=== PATIENT | female | born 1960 | race Caucasian/White ===

== ENCOUNTER → 2021-03-14 10:59 | Outpatient (CLI) | payer OTHER, SELFPAY ==
--- NOTE | 2021-03-14 11:01 | DI.MRI.S_ITS ---
PROCEDURE: MR LUMBAR SPINE WO CON INDICATIONS: lumbar radiculopathy TECHNIQUE: Noncontrast sagittal T1 spin echo and T2 fast echo, sagittal STIR, axial T1 and T2 fast spin echo through the lumbar spine. In cases with scoliosis, additional coronal T2 fast spin echo may be performed. COMPARISON: [facility], , MRI L-SPINE W/O CONTRAST, 04/25/2017, 14:00. [facility], , SPINE LUMB 2 OR 3VW, 09/19/2015, 9:19. FINDINGS: Image quality: Excellent. Alignment and Curvature: There is normal bony alignment. Bone Marrow: Marrow is of normal overall signal. No acute vertebral body compression fractures. Spinal Cord: Conus medullaris terminates at the L1 level. Visualized cord demonstrates normal signal and size. Paraspinous Soft Tissues: No paravertebral masses. T12-L1: Normal appearance. L1-L2: Normal appearance. L2-L3: Slight loss of disc signal. Minimal, diffuse disc bulge. Mild bilateral facet hypertrophy. Mild narrowing of the central canal. No neural foraminal narrowing. No neural compression. Fissure noted in the anterior annulus. L3-L4: Slight loss of disc signal. Mild, diffuse disc bulge. Mild bilateral facet hypertrophy. Moderate narrowing of the central canal. Mild to moderate bilateral neural foraminal narrowing. No neural compression. Fissure noted in the left lateral annulus. L4-L5: Loss of disc signal. Mild, diffuse disc bulge. Mild bilateral facet hypertrophy. Mild narrowing of the central canal. Moderate bilateral neural foraminal narrowing. No neural compression. L5-S1: Disc has a normal appearance. Mild bilateral facet hypertrophy. No central stenosis. No neural foraminal narrowing. No neural compression IMPRESSION: 1. Mild multilevel degenerative disc disease. 2. Mild multilevel facet arthropathy. 3. No severe central canal narrowing. 4. No severe neural foraminal narrowing. 5. No neural compression. 6. L2-L3 and L3-L4 disc annulus fissures. Dictated by: Jeannette Gamez MD, PhD on 03/16/2021 at 11:56 Approved by: Jeannette Gamez MD, PhD on 03/16/2021 at 12:00
== END ==
PROVIDERS: PCP Family Medicine; Referring Provider Physical Medicine & Rehabilitation; Visit Provider Physical Medicine & Rehabilitation
DX: M51.16 Intervertebral disc disorders with radiculopathy, lumbar region (principal); M47.26 Other spondylosis with radiculopathy, lumbar region; M47.27 Other spondylosis with radiculopathy, lumbosacral region
CPT/HCPCS: 72148

== ENCOUNTER → 2021-04-27 08:05 | Outpatient (CLI) | payer OTHER, SELFPAY ==
[2021-04-27 11:48] LABS: COVID19 -Nasal RAPID Negative (Negative)
== END ==
PROVIDERS: Nurse Practitioner; PCP Family Medicine; Visit Provider Physical Medicine & Rehabilitation
DX: Z20.822 Contact with and (suspected) exposure to COVID-19 (principal)
CPT/HCPCS: 87635

== ENCOUNTER 2021-04-28 09:59 | Outpatient (CLI) | payer OTHER, SELFPAY ==
[2021-04-28] VITALS (8 sets, daily range): BP systolic 120–154; BP diastolic 61–79; PULSE 91–97; RESP 15–25; TEMP 36.6; O2SAT 96–98
--- NOTE | 2021-04-28 10:01 | DI.RAD.S_ITS ---
PROCEDURE: PAIN L/S FACET INJ/BLK 1ST JUAN COMPARISON: [facility], MR, MR LUMBAR SPINE WO CON, 03/14/2021, 11:18. [facility], RG, XR L-SPINE 2-3V, 12/01/2020, 18:43. INDICATIONS: SPONDYLOSIS FINDINGS: Fluoroscopic spot filming was performed to verify placement of a spinal needle at the L3-L4 level and the L4-L5 level, as labeled on the films. Appropriate location of the needle tip was confirmed by injection of iodinated contrast. IMPRESSION: Intraprocedural examination within normal limits. Dictated by: Naman Gaona M.D. on 04/28/2021 at 11:12 Approved by: Naman Gaona M.D. on 04/28/2021 at 11:12
[2021-04-28] MEDS: fentaNYL 100 MCG/2 ML INJ 50 MCG IV (10:55)
[2021-04-28] MEDS: MIDAZOLAM 5 MG/5 ML VIAL IV (10:57)
[2021-04-28] MEDS: IOPAMIDOL 15 ML VIAL 3 ML INJ (11:06)
[2021-04-28] MEDS: BUPIVACAINE 0.5% (PF) VIAL 2 ML INJ (11:06)
[2021-04-28] MEDS: BETAMETHASONE 30 MG/5 ML MDV 12 MG INJ (11:07)
[2021-04-28] MEDS: LIDOCAINE 1% 20 ML 10 ML INJ (11:07)
--- NOTE | 2021-04-28 11:14 | P.PCN_ITS ---
Date/Time/Diagnoses Date of procedure: 04/28/21 Time of procedure: 11:14 Pre-procedure diagnosis: 1. FACET ARTHROPATHY 2. AXIAL LBP 3. MULTILEVEL DDD Post-procedure diagnosis: same Procedure Notes Procedure: 1. FLUORSCOPICALLY GUIDED CONTRAST CONTROLLED FACET JOINT INJECTIONS BILATERAL L3/4, L4/5 Indications: Britt is referred by Dr. Torres for treatment of Axial LBP Physician: Vic Shukla Total Fluoroscopy time (seconds): 12 Total sedation minutes: 14 Complications: none Procedure in detail & Post-procedure care: FINDINGS Multilevel Facet Arthropathy with Clinically significant axial LBP DESCRIPTION OF PROCEDURE Fluoroscopically guided, contrast-controlled bilateral L3/4, L4/5 facet joint injections. Following review of allergy and review of potential side effects and complications, including, but not necessarily limited to, infection, allergic reaction, local tissue breakdown, stroke, temporary or permanent nerve injury, paralysis, and possible , the patient indicated that the patient understood and agreed to proceed. An informed consent document was signed by the patient, witnessed by a nurse, and placed in the patient's chart. Additionally, other treatment options including medications, modalities, and physical therapy were reviewed with the patient. After review of previous anaesthesic history and IV conscious sedation the patient was deemed safe to proceed with today's procedure with IV conscious sedation as ASA class II designation. Safety time-out was performed to confirm patient ID, procedure to be performed and site of procedure. IV sedation was accomplished with a combination of 4mg of Versed and 50mcg of Fentanyl was administered by the RN after DO order, titrated to patient comfort during the course of the procedure while the patient remained responsive to all verbal commands. In the prone position, following sterile prep and drape of the lumbar region, the posterior aspect of the L3/4, L4/5 facet joints were identified fluoroscopically. The skin was anesthetized via a 25-gauge 1.5-inch needle with 1% lidocaine solution into the corresponding facet joints. At this point, a 22- gauge 3.5-inch spinal needle was atraumatically introduced and advanced under fluoroscopic guidance into the corresponding facet joints. Following negative aspiration, injections of approximately 0.2cc of Isovue 200 confirmed interar ticular placement without vascular uptake. The identical procedure was then performed at the L3/4, L4/5 facet joints on the left. Radiological data, including multiple fluoroscopic views of the lumbosacral spine, reveal a spinal needle at the L3/4, L4/5 facet joints bilaterally. Subsequent views show flow of contrast material both superiorly and inferiorly within the joint space without vascular or intrathecal uptake. At this point, a total of 0.5cc including a mixture of 0.25cc Marcaine and 0.25cc betamethasone was injected without complication into each of the corresponding facet joints. The patient tolerated the procedure well without signs or symptoms of complications prior to transfer to the recovery area continued monitoring without incident. The patient was then transferred to the recovery area where they were observed for an appropriate period of time after the injection. The patient reported a VAS score of 7 prior to the procedure and a post-procedure VAS of 0. POST OP INSTRUCTIONS The patient was provided a Pain Log to continue to record their response to the target-specific procedure prior to follow-up visit with their referring physician. Additionally, specific post-injection care instructions and a contact number to our office were provided if concerns arise regarding possible complications associated with the procedure are suspected.
== END 2021-04-28 11:33 | disposition home or self-care (01) ==
LOC: RAD 10:01
PROVIDERS: PCP Family Medicine; Referring Provider Physical Medicine & Rehabilitation; Visit Provider Physical Medicine & Rehabilitation
DX: M47.816 Spondylosis without myelopathy or radiculopathy, lumbar region (principal); M51.36 Other intervertebral disc degeneration, lumbar region; M54.5 Low back pain
CPT/HCPCS: 64493; 64494; 99152; J0702; J2250; J3010

== ENCOUNTER → 2022-02-02 12:54 | Outpatient (CLI) | payer OTHER, SELFPAY ==
[2022-02-02 15:13] LABS: COVID19 -Nasal RAPID Negative (Negative)
== END ==
PROVIDERS: PCP Family Medicine; Visit Provider Physical Medicine & Rehabilitation
DX: Z20.822 Contact with and (suspected) exposure to COVID-19 (principal)
CPT/HCPCS: 87635; C9803

== ENCOUNTER 2022-02-04 10:22 | Outpatient (CLI) | payer OTHER, SELFPAY ==
[2022-02-04] VITALS (10 sets, daily range): BP systolic 122–169; BP diastolic 59–74; PULSE 81–96; RESP 16–21; TEMP 36.4; O2SAT 95–99
--- NOTE | 2022-02-04 10:24 | DI.RAD.S_ITS ---
PROCEDURE: PAIN L/S FACET INJ/BLK 1ST JUAN COMPARISON: None. INDICATIONS: SPONDYLOSIS FINDINGS: Access needles noted at the bilateral L3, L4 and L5 pedicles. Injection of small amount of contrast material through the axis needles demonstrates the tips of the access needles are extra thecal. IMPRESSION: Access needles at the bilateral L3, L4 and L5 pedicles for bilateral L3, L4 and L5 medial branch block. Dictated by: Jeannette Gamez MD, PhD on 02/04/2022 at 11:40 Approved by: Jeannette Gamez MD, PhD on 02/04/2022 at 11:41
[2022-02-04] MEDS: BUPIVACAINE 0.5% (PF) VIAL 5 ML INJ (11:10)
[2022-02-04] MEDS: IOPAMIDOL 15 ML VIAL 3 ML INJ (11:10)
[2022-02-04] MEDS: LIDOCAINE 1% 20 ML (11:10)
[2022-02-04] MEDS: MIDAZOLAM 5 MG/5 ML VIAL IV (11:12)
--- NOTE | 2022-02-04 11:25 | PM.PROC.IR.1 ---
Date/Time/Diagnoses Date of procedure: 02/04/22 Time of procedure: 11:26 Pre-procedure diagnosis: FACET ARTHROPATHY Post-procedure diagnosis: same Procedure Notes Procedure: 1. BILATERAL L3, L4 AND L5 DIAGNOSTIC MB BLOCKS Indications: Britt is referred by Dr. Torres for treatment of Bilateral Axial LBP. Physician: Vic Shukla Total Fluoroscopy time (seconds): 12 Total sedation minutes: 16 Complications: none Procedure in detail & Post-procedure care: DESCRIPTION OF PROCEDURE Fluoroscopically guided, contrast-controlled bilateral L3, L4 and L5 medial branch blocks with 0.5cc of 0.5% Marcaine. Following review of allergy and review of potential side effects and complications, including, but not necessarily limited to, infection, allergic reaction, local tissue breakdown, nerve injury, paralysis, stroke and possible , the patient indicated that the patient understood and agreed to proceed. An informed consent document was signed by the patient, witnessed by a nurse, and placed in the patient's chart. After review of previous anaesthesic history and IV conscious sedation the patient was deemed safe to proceed with today's procedure with IV conscious sedation as ASA class II designation. Safety time-out was performed to confirm patient ID, procedure to be performed and site of procedure. IV sedation was accomplished with a combination of 5mg of Versed was administered by the RN after DO order, titrated to patient comfort during the course of the procedure while the patient remained responsive to all verbal commands In the prone position, following sterile prep and drape of the lumbar region, the right L3, L4 and L5 anatomical location of the medial branch of the dorsal ramus was identified fluoroscopically. Subsequently an anesthetic skin wheal using 1% lidocaine solution was initiated at each of the anatomical spots. Subsequently then a 22-gauge 3.5-inch spinal needle was atraumatically introduced and advanced under fluoroscopic guidance at each of the corresponding sites at the right L3, L4 and L5 MB. After negative aspiration, 0.2cc of Isovue 200 was injected, confirming placement without vascular or intrathecal uptake. Subsequently then 0.5cc of 0.5% Marcaine solution was injected at each of the corresponding sites at the right L3, L4 and L5 medial branch locations. The identical procedure was replicated on the left. The patient tolerated the procedure well without signs or symptoms of complications. The patient tolerated the procedure well without signs or symptoms of complications prior to transfer to the recovery area continued monitoring without incident. Post-procedure, the patient was monitored initiating provocative activities to measure the amount of relief from block of the facetogenic pain. The patient reported a VAS of 7 prior to the procedure and a post-procedure VAS of 1. It has been a pleasure to assist in the diagnostic and therapeutic care of your patient. POST OP INSTRUCTIONS The patient was provided with a Pain Log to complete over the next several hours and subsequent days prior to the patient's follow up with the ordering physician. 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 The patient is aware, was provided, once again, with a Pain Log and will follow up with the referring physician for review and clinical correlation
== END 2022-02-04 11:45 | disposition home or self-care (01) ==
LOC: RAD 10:24
PROVIDERS: PCP Family Medicine; Referring Provider Physical Medicine & Rehabilitation; Visit Provider Physical Medicine & Rehabilitation
DX: M47.816 Spondylosis without myelopathy or radiculopathy, lumbar region (principal)
CPT/HCPCS: 64493; 64494; 99152; J2250

== ENCOUNTER → 2022-03-15 11:10 | Outpatient (CLI) | payer OTHER, SELFPAY ==
[2022-03-15 13:33] LABS: COVID19 -Nasal RAPID Negative (Negative)
== END ==
PROVIDERS: PCP Physician Assistant; Visit Provider Physical Medicine & Rehabilitation
DX: Z20.822 Contact with and (suspected) exposure to COVID-19 (principal)
CPT/HCPCS: 87635; C9803

== ENCOUNTER 2022-03-16 07:27 | Outpatient (CLI) | payer OTHER, SELFPAY ==
[2022-03-16] VITALS (8 sets, daily range): BP systolic 115–155; BP diastolic 57–71; PULSE 94–101; RESP 12–24; TEMP 37; O2SAT 95–98
--- NOTE | 2022-03-16 07:28 | DI.RAD.S_ITS ---
PROCEDURE: PAIN L INTERLAMINAR/CAUDAL INJ INDICATIONS: SPONDYLOSIS COMPARISON: [facility], XA, PAIN L/S FACET INJ/BLK 1ST JUAN, 02/04/2022, 11:11. FINDINGS: Fluoroscopic spot filming was performed to verify placement of a spinal needle at the L4-L5 level, as labeled on the films. Appropriate location of the needle tip was confirmed by injection of iodinated contrast. IMPRESSION: Intraprocedural examination within normal limits. Dictated by: Naman Gaona M.D. on 03/16/2022 at 9:01 Approved by: Naman Gaona M.D. on 03/16/2022 at 9:01
[2022-03-16] MEDS: BETAMETHASONE 30 MG/5 ML MDV 6 MG INJ (08:42)
[2022-03-16] MEDS: BUPIVACAINE 0.25% (PF) VIAL 2 ML INJ (08:42)
[2022-03-16] MEDS: IOPAMIDOL 15 ML VIAL 3 ML INJ (08:43)
[2022-03-16] MEDS: DEXAMETHASONE 10 MG/ML VIAL 20 MG INJ (08:43)
[2022-03-16] MEDS: MIDAZOLAM 2 MG/2 ML VIAL 4 MG IV (08:44)
--- NOTE | 2022-03-16 08:54 | P.PCN_ITS ---
Date/Time/Diagnoses Date of procedure: 03/16/22 Time of procedure: 08:54 Pre-procedure diagnosis: 1. HNP WITH RADICULAR FEATURES, 2. MULTILEVEL CENTRAL STENOSIS, Post-procedure diagnosis: same Procedure Notes Procedure: 1. FLUOROSCOPICALLY GUIDED CONTRAST CONTROLLED INTERLAMINAR EPIDURAL STEROID INJECTION -L4/5 Indications: Sujatha is referred by MARGARITA Rubio for treatment of Bilateral Foraminal Stenosis R>L LE symptoms. Physician: Vic Shukla Total Fluoroscopy time (seconds): 6 Total sedation minutes: 12 Complications: none Procedure in detail & Post-procedure care: FINDINGS Multilevel Central Spinal Stenosis with Nerve Root Compression DESCRIPTION OF PROCEDURE Fluoroscopically guided, contrast-controlled L4/5 translaminar epidural steroid injection. Following review of allergy and review of potential side effects and complications, including, but not necessarily limited to, infection, allergic reaction, local tissue breakdown, temporary as well as permanent nerve injury, paralysis, stroke and possible , the patient indicated that the patient understood and agreed to proceed. An informed consent document was signed by the patient, witnessed by a nurse, and placed in the patient's chart. Additionally, other treatment options including modalities, medications, and physical therapy were reviewed with the patient. After review of previous anaesthesic history and IV conscious sedation the patient was deemed safe to proceed with today?s procedure with IV conscious sedation as ASA class II designation. Safety time-out was performed to confirm patient ID, procedure to be performed and site of procedure. IV sedation was accomplished with a combination of 4mg of Versed was administered by the RN after DO order, titrated to patient comfort during the course of the procedure while the patient remained responsive to all verbal commands In the prone position, following sterile prep and drape of the lumbar region, the L4/5 translaminar space was identified fluoroscopically. The skin was anesthetized via a 25-gauge, 1.5inch needle with 1% lidocaine solution. At this point, a 22-gauge short bevel spinal needle was atraumatically introduced and advanced under fluoroscopic guidance into the region of the L4/5 translaminar space. Depth was confirmed on lateral view. Radiological data, including multiple fluoroscopic views of the lumbar spine, reveal a spinal needle at the L4/5 translaminar space. Lateral views then show placement of the needle in the epidural space. Subsequent views show contrast material flowing superiorly and inferiorly in the epidural space. No vascular or intrathecal uptake is observed. At this point, using loss of resistance technique with saline and air, the epidural space was entered. This was confirmed following negative aspiration with injection of approximately 1.5cc of Isovue 200, showing excellent epidural flow without vascular or intrathecal uptake. At this point, 1cc of 1% lidocaine solution combined with 3cc or 20mg of dexamethasone and 6mg betamethasone was injected without incident. The patient tolerated the procedure well without signs or symptoms of complications prior to transfer to the recovery area continued monitoring without incident. The patient was then transferred to the recovery area where they were observed for an appropriate period of time after the injection. The patient reported a VAS score of 6 prior to the procedure and a post- procedure VAS of 0. POST OP INSTRUCTIONS The patient was provided a Pain Log to continue to record their response to the target-specific procedure prior to follow-up visit with their referring physician. Additionally, specific post-injection care instructions and a contact number to our office were provided if concerns arise regarding possible complications associated with the procedure are suspected.
== END 2022-03-16 09:15 | disposition home or self-care (01) ==
LOC: RAD 07:28
PROVIDERS: PCP Physician Assistant; Referring Provider Physical Medicine & Rehabilitation; Visit Provider Physical Medicine & Rehabilitation
DX: M48.061 Spinal stenosis, lumbar region without neurogenic claudication; M51.16 Intervertebral disc disorders with radiculopathy, lumbar region
CPT/HCPCS: 62323; 99152; J0702; J1100; J2250

== ENCOUNTER → 2022-05-25 14:14 | Outpatient (CLI) | payer OTHER, SELFPAY ==
[2022-05-25 15:21] LABS: COVID19 -Nasal RAPID Negative (Negative)
== END ==
PROVIDERS: PCP Physician Assistant; Visit Provider Physical Medicine & Rehabilitation
DX: Z20.822 Contact with and (suspected) exposure to COVID-19 (principal)
CPT/HCPCS: 87635; C9803

== ENCOUNTER 2022-05-27 07:31 | Outpatient (CLI) | payer OTHER, SELFPAY ==
[2022-05-27] VITALS (20 sets, daily range): BP systolic 127–168; BP diastolic 58–94; PULSE 76–91; RESP 13–21; TEMP 36.4; O2SAT 93–99
--- NOTE | 2022-05-27 08:09 | DI.RAD.S_ITS ---
PROCEDURE: PAIN L/S MED/LAT N RFA BILAT INDICATIONS: SPONDYLOSIS COMPARISON: Loc[facility], XA, PAIN L INTERLAMINAR/CAUDAL INJ, 03/16/2022, 8:42. [facility], XA, PAIN L/S FACET INJ/BLK 1ST JUAN, 02/04/2022, 11:11. FINDINGS: Fluoroscopic spot filming was performed to verify placement of spinal needles on both sides at the L3, L4, and L5 levels, as labeled on the films. IMPRESSION: Images during rhizotomy within normal limits. Dictated by: Naman Gaona M.D. on 05/27/2022 at 11:53 Approved by: Naman Gaona M.D. on 05/27/2022 at 11:54
[2022-05-27] MEDS: BUPIVACAINE 0.5% (PF) VIAL 5 ML INJ (08:31)
[2022-05-27] MEDS: LIDOCAINE 1% (PF) 5 ML INJ (08:31)
[2022-05-27] MEDS: MIDAZOLAM 5 MG/5 ML VIAL IV (08:45)
[2022-05-27] MEDS: fentaNYL 100 MCG/2 ML INJ IV (08:45)
[2022-05-27] MEDS: ONDANSETRON 4 MG/2 ML INJ IV (08:50)
--- NOTE | 2022-05-27 09:08 | P.PCN_ITS ---
Date/Time/Diagnoses Date of procedure: 05/27/22 Time of procedure: 09:08 Pre-procedure diagnosis: 1. RECALCITRANT FACET ARTHROPATHY Post-procedure diagnosis: same Procedure Notes Procedure: 1. BILATERAL L3, L4 AND L5 MEDIAL BRANCH RADIOFREQUENCY NEUROTOMY Indications: Britt is referred by MARGARITA Rubio for treatment of facet arthropathy. Physician: Vic Shukla Total Fluoroscopy time (seconds): 24 Total sedation minutes: 39 Complications: none Procedure in detail & Post-procedure care: DESCRIPTION OF PROCEDURE Bilateral L3, L4 and L5 medial branch radiofrequency neurotomy The patient is well known to this clinic having undergone previous facet injections with good but temporary relief. The patient has experienced appropriate, concordant relief with previous facet and median branch blocks but the patient's pain has been recalcitrant to further conservative measures. Therefore, based upon the patient's relief and persistent symptoms, the patient is considered an appropriate candidate for facet rhizotomy. All of the patient's questions regarding the risks versus benefits of the procedure, including, but not limited to, bleeding, infection, temporary as well as lasting nerve injury, paralysis, stroke, and , as well treatment alternatives were answered to satisfaction. After obtaining informed consent, denial of pertinent drug allergies, as well as being made aware of the potential risks of bleeding, infection, spinal cord trauma, paralysis, temporary and permanent nerve damage, seizure, stroke, and possible , the patient was brought to the fluoroscopy suite and positioned prone on the fluoroscopy table. The lumbar region was prepped with Betadine and covered with a fenestrated drape in the usual sterile fashion. Appropriate monitors applied including pulse ox imeter, pulse, and blood pressure for regular monitoring throughout the procedure. After review of previous anaesthesic history and IV conscious sedation the patient was deemed safe to proceed with today's procedure with IV conscious sedation as ASA class II designation. Safety time-out was performed to confirm patient ID, procedure to be performed and site of procedure. IV sedation was accomplished with a combination of 5mg of Versed and 100mcg of Fentanyl administered by the RN after DO order, titrated to patient comfort during the course of the procedure while the patient remained responsive to all verbal commands. After local infiltration using 1% lidocaine, under fluoroscopic guidance, a 10- cm RF insulated needle with a 10-mm active tip was positioned parallel to the junction of the right the superior articulating process where the L5 medial branch resides. Needle placement was confirmed with motor stimulation of .5v on the right which produced local stimulation without radicular component. The stimulation was then increased to 2v with, once again, only local multifidus stimulation without radicular component. The needle was then removed and the identical procedure was performed along the length of the right L4 medial branch with motor stimulation at .7v on the right. The identical procedure was once again performed along the length of the right L3 and medial branch with motor stimulation of .5v on the right. The medial branches were then anesthetised with 0.5% marcaine. This was then followed by two discreet lesions performed at 80 degrees Celsius for 90 seconds each. The identical procedures were repeated on the left. The patient tolerated the procedure well without signs or symptoms of complications prior to transfer to the recovery area continued monitoring without incident. The patient was then transferred to the recovery area where they were observed for an appropriate period of time after the injection. The patient reported a VAS score of 9 prior to the procedure and a post-procedure VAS of 0. POST OP INSTRUCTIONS The patient was provided a Pain Log to continue to record the patient's response to the target-specific procedure prior to the patient's follow-up visit with the referring physician. Additionally, specific post-injection care instructions and a contact number to our office were provided if concerns arise regarding possible complications associated with the procedure are suspected.
--- NOTE | 2022-05-27 09:39 | PC.NURSE ---
Patient c/o nausea- is diaphoretic and feels lightheaded. cool wash cloth applied to head, alcohol swap to smell, blood glucose checked 242, taking small sips of apple juice.
--- NOTE | 2022-05-27 11:16 | PC.NURSE ---
Patient wishes to go home reports she will feel better laying in bed. Reports the nausea is about 50% gone, continues to have at times be diaphoretic. Discussed with Dr Shukla per ok to d/c home. no vomiting while in post op room.
== END 2022-05-27 10:02 | disposition home or self-care (01) ==
PROVIDERS: PCP Physician Assistant; Referring Provider Physical Medicine & Rehabilitation; Visit Provider Physical Medicine & Rehabilitation
DX: M47.816 Spondylosis without myelopathy or radiculopathy, lumbar region (principal)
CPT/HCPCS: 64635; 64636; 82962; 99152; 99153; J2250; J2405; J3010

== ENCOUNTER → 2022-07-22 12:35 | Outpatient (CLI) | payer OTHER, SELFPAY ==
[2022-07-22 13:57] LABS: COVID19 -Nasal RAPID Negative (Negative)
== END ==
PROVIDERS: PCP Physician Assistant; Referring Provider Internal Medicine; Visit Provider Internal Medicine
DX: Z20.822 Contact with and (suspected) exposure to COVID-19 (principal)
CPT/HCPCS: 87635; C9803

== ENCOUNTER → 2022-07-23 11:41 | Outpatient (CLI) | payer OTHER, SELFPAY ==
--- NOTE | 2022-07-28 09:13 | PM.PFT.1 ---
Pulmonary Function Test Referral & Results Date Patient Seen: 07/23/22 Requesting provider: Anastasiya Rodas Results: The spirometry demonstrates an FVC of 1.92 L which is 59% of predicted. The FEV1 was measured at 1.19 L which is 48% of predicted. The FEV1/FVC ratio was 62 which is 80% of predicted. Following the administration of bronchodilator there was a 33% improvement in FEF 25-75%. Lung volumes show an SVC of 2.50 L which is 83% of predicted. The diffusing capacity was measured at 17.84 which is 73% of predicted. No hemoglobin value was provided, so no correction for potential anemia could be made, if appropriate. The maximum voluntary ventilation was reduced Interpretation: This study demonstrates [id number] obstructive lung disease based on reduction FEV1 although FEV1/FVC ratio is relatively preserved. There is some evidence of benefit following bronchodilator administration based on improvement in FEF 25-75% as above. Shape a flow volume loop also supports the presence of obstructive lung disease There is a mild reduction in lung volumes suggesting the presence of mild restrictive lung disease which may explain some of the abnormality in the FEV1 above Diffusing capacity is mildly reduced suggesting disease at the capillary alveolar level as well, unless patient is anemic as above Clinical correlation suggested
== END ==
PROVIDERS: PCP Physician Assistant; Referring Provider Specialist; Visit Provider Specialist
DX: J41.0 Simple chronic bronchitis (principal); F17.211 Nicotine dependence, cigarettes, in remission; J98.8 Other specified respiratory disorders
CPT/HCPCS: 94060; 94726; 94729

== ENCOUNTER → 2022-10-18 16:54 | Outpatient (CLI) | payer OTHER, SELFPAY ==
--- NOTE | 2022-10-18 16:58 | DI.MRI.S_ITS ---
PROCEDURE: MR LUMBAR SPINE WO CON INDICATIONS: Low back pain, unspecified TECHNIQUE: Noncontrast sagittal T1 spin echo and T2 fast echo, sagittal STIR, and T2 fast spin echo through the lumbar spine. In cases with scoliosis, additional coronal T2 fast spin echo may be performed. COMPARISON: [facility], MR, MR LUMBAR SPINE WO CON, 03/14/2021, 11:18. [facility], CR, XR LUMBAR SPINE WITH FLEXION EXTENSION 5 VIEWS, 10/01/2022, 13:51. FINDINGS: Image quality: Excellent. Alignment and Curvature: There is minimal retrolisthesis seen at the L4-L5 level. Bone Marrow: Marrow is of normal overall signal. No acute vertebral body compression fractures. Spinal Cord: Conus medullaris terminates at the T12-L1 level. Visualized cord demonstrates normal signal and size. Paraspinous Soft Tissues: No paravertebral masses. A distal abdominal aortic aneurysm is seen, which measures 3.5 cm AP. T12-L1: Normal appearance. L1-L2: Normal appearance. L2-L3: No significant abnormality is seen. L3-L4: The disc height and disk signal are well-preserved. Moderate disc bulge is seen, which is eccentric to the right. There is a superimposed central disc protrusion. At least moderate facet hypertrophy is seen. There is moderate right-sided and [id number] left-sided neural foraminal narrowing. At least moderate central canal narrowing is seen at this level. When comparison is made with the prior images, these findings are similar. L4-L5: The disc height is well-preserved. Loss of disc signal is seen at this level. At least moderate disc bulge is seen. There is a central/right disc protrusion seen, as on series 6, image 5. At least moderate facet hypertrophy is seen. Associated hypertrophy of the ligamentum flavum can be seen. Moderate bilateral neural foraminal narrowing is seen. Moderate central canal narrowing is seen. There is slight progression of degenerative change since the prior, with worsening of the central/right disc protrusion. L5-S1: The disc height and disk signal are well-preserved. Mild generalized disc bulge is seen. Moderate facet joint hypertrophy is seen. There is mild left-sided and no right-sided neural foraminal narrowing. No significant central canal narrowing is seen. When comparison is made with the prior images, these findings are similar. IMPRESSION: Lower lumbar spine degenerative changes are seen, with slight progression at L4-L5 compared to 2020. Distal abdominal aortic aneurysm noted, 3.5 cm AP. Dictated by: Naman Gaona M.D. on 10/19/2022 at 12:38 Approved by: Naman Gaona M.D. on 10/19/2022 at 12:43
== END ==
PROVIDERS: PCP Physician Assistant; Referring Provider Orthopaedic Surgery Orthopaedic Surgery of the Spine; Visit Provider Orthopaedic Surgery Orthopaedic Surgery of the Spine
DX: M47.816 Spondylosis without myelopathy or radiculopathy, lumbar region (principal); M47.817 Spondylosis without myelopathy or radiculopathy, lumbosacral region; I71.40 Abdominal aortic aneurysm, without rupture, unspecified; M54.50 Low back pain, unspecified
CPT/HCPCS: 72148

== ENCOUNTER → 2023-03-02 10:00 | Outpatient (CLI) | payer OTHER, SELFPAY ==
--- NOTE | 2023-03-02 | DI.CT.S_ITS ---
PROCEDURE: CT ANGIO ABD AORTA RUNOFF INDICATIONS: PERIPHERAL VASCULAR DISEASE TECHNIQUE: After the administration of intravenous contrast, 2.5 mm sections acquired from T12 to the feet, with optional delayed image acquisition from the knees to the feet. 3-dimensional maximum intensity projection (MIP) coronal and sagittal reformats, and/or 3-dimensional volume rendering reformatting was then performed. For radiation dose reduction, the following was used: automated exposure control. COMPARISON: None. FINDINGS: Image quality: Excellent. Image quality: Excellent. Lung bases: Lung bases are clear. Heart size is normal. Mitral valve replacement. The coronary arteries have atherosclerotic calcifications. Solid organs: Liver: The liver has no mass or intrahepatic biliary ductal dilatation. Biliary: The gallbladder has no gallstones, pericholecystic fluid, gallbladder wall thickening, or surrounding inflammatory change. Pancreas: The pancreas has no mass or ductal dilatation. There is no surrounding inflammation. Spleen: Normal size. There are no masses. Adrenals: No hypertrophy or nodules. Kidneys: No obstructive calculus or hydronephrosis. No solid mass. No cystic mass. Peritoneum and bowel: The distal esophagus and stomach are normal. The small bowel has a normal caliber and appearance. The terminal ileum is normal. The large bowel has a normal caliber and appearance. The appendix is not definitively visualized and therefore acute appendicitis cannot be excluded; however there are no secondary findings to suggest acute appendicitis. No free fluid or air. Nodes and vessels: No retroperitoneal or mesenteric adenopathy by size criteria. Aorta and inferior vena cava are normal in size. Miscellaneous: No abdominal wall mass or hernia. PELVIS: Genitourinary: The bladder has no wall thickening or mass. No bladder calcifications. Bones: No suspicious bony lesions. No vertebral body compression fractures. IMPRESSION: Abdominal aorta: The aorta is aneurysmally dilated measuring 3.3 cm. There are diffuse calcifications and eccentric mural thrombus. The celiac trunk and SMA are patent. The right renal artery is patent. The left renal artery has moderate stenosis. Severe stenosis both common iliac arteries at the bifurcation Right lower extremity: The common iliac arteries have severe stenosis at the bifurcations with heavy atherosclerotic calcifications. The [employer] has mild atherosclerotic disease with no significant stenosis. The PFA, SFA, popliteal artery, and infrapopliteal arteries are widely patent with no significant atherosclerotic disease. Left lower extremity: The common iliac arteries have severe stenosis at the bifurcations with heavy atherosclerotic calcifications. The [employer] has mild atherosclerotic disease with no significant stenosis. The PFA, SFA, popliteal artery, and infrapopliteal arteries are widely patent with no significant atherosclerotic disease. IMPRESSION: 1. 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 2. Moderate stenosis of the left renal artery. Dictated by: Joe Mojica M.D. on 03/02/2023 at 14:14 Approved by: Joe Mojica M.D. on 03/02/2023 at 14:29
[2023-03-02 10:32] LABS: Estimated Glomerular Filt Rate > 60 mL/min (>60)
== END ==
PROVIDERS: Radiology Diagnostic Radiology; PCP Physician Assistant; Referring Provider Surgery; Visit Provider Surgery
DX: I74.09 Other arterial embolism and thrombosis of abdominal aorta (principal); I73.9 Peripheral vascular disease, unspecified; I70.1 Atherosclerosis of renal artery; M48.061 Spinal stenosis, lumbar region without neurogenic claudication; I25.10 Atherosclerotic heart disease of native coronary artery without angina pectoris; Z95.2 Presence of prosthetic heart valve
CPT/HCPCS: 36415; 75635; 82565; Q9967